=== PATIENT | male | born 1945 | race Caucasian/White ===

== ENCOUNTER 2020-05-04 18:13 | Emergency (ER) | payer MEDICARE, MEDICAID ==
[~2020-05-04] VITALS: Ht 175.3 cm; Wt 72.6 kg
[2020-05-04 18:15] VITALS: BP 140/68
--- NOTE | 2020-05-04 18:17 | NUR ---
PT BIBA AND TAKEN TO BED 6. RT AT BEDSIDE UPON ARRIVAL.
--- NOTE | 2020-05-04 18:20 | NUR ---
74 YEAR OLD MALE BIBA FROM [facility] FOR DECREASED O2 SATURATION X TODAY. PER EMS PT WAS AROUND 83% ON USUAL VENT SETTINGS. PT ARRIVED BVM AND WAS PLACED ON MECHANICAL VENTILATOR BY RT - O2 SATURATION 92%. PT PRESENTS WITH PEG TUBE, TRACH, URINARY/RECTAL ACEVEDO CATHETER. PER EMS PT AOX0 BASELINE, DOES NOT MAKE EYE CONTACT. BREATHING ON MECHANICAL VENTILATION, SKIN WARM AND DRY. BED IN LOWEST POSITION, LOCKED, BED RAIL UPX2. PLACED ON MONITOR, SINUS TACHYCARDIA - ERMD AWARE OF PT STATUS PMH - RF, HTN, ESRD, TRACH, PEG TUBA ALLERGIES - NKA
--- NOTE | 2020-05-04 18:30 | NUR ---
DR SCHAEFER AWARE PT HR IN 140'S
--- NOTE | 2020-05-04 18:53 | NUR ---
FLU, BOBBY, AND PCR COVID SWAB SENT TO LAB
--- NOTE | 2020-05-04 19:19 | NUR ---
REPORT GIVEN TO ALFREDO RODRIGUES, TRANSFER OF CARE AT THIS TIME
--- NOTE | 2020-05-04 20:00 | NUR ---
VENT ATTACHED TO TRACH. O2 SAT 92%. SUCTIONED OF [place] [employer].
[2020-05-04 20:20] VITALS: BP 140/68
--- NOTE | 2020-05-04 21:37 | NUR ---
CALLED Tom SAAVEDRA AND INFORMED HER THAT PT WOULD BE RETURNING TO THEIR FACILITY, ETA KNOWN AT THIS TIME.
--- NOTE | 2020-05-04 22:51 | NUR ---
[facility] TRANSPORT AT BEDSIDE
--- NOTE | 2020-05-04 23:20 | NUR ---
TRANSPORT VIA [facility], RETURNING TO [facility] [place] PTS O2 SAT DECREASES SLIGHTLY WITH MOVEMENT
== END 2020-05-04 23:20 ==
LOC: MED 18:13
DX: J18.9 Pneumonia, unspecified organism (principal); I12.0 Hypertensive chronic kidney disease with stage 5 chronic kidney disease or end stage renal disease; N18.6 End stage renal disease; Z98.890 Other specified postprocedural states
CPT/HCPCS: 36600; 71045; 82803; 93005; 99285